=== PATIENT | female | born 1975 | race Caucasian/White ===

== ENCOUNTER → 2021-10-20 | Outpatient (CLI) | payer OTHER ==
[2021-10-20 13:42] LABS: BASO % 0.2 % (0.0-1.0); EOS # 0.2 10^3/uL (0.0-0.5); EOS % 2.7 % (0.0-3.0); HEMATOCRIT 36.5 % (36.0-47.0); HEMOGLOBIN 12.3 g/dl (12.0-15.5); LYMPH # 2.2 10^3/uL (1.5-5.0); LYMPH % 26.1 % (24.0-44.0); MEAN CORPUSCULAR HEMOGLOBIN 28.4 pg (27.0-33.0); MEAN CORPUSCULAR HGB CONC 33.7 g/dl (32.0-36.5); MEAN CORPUSCULAR VOLUME 84.3 fl (80.0-96.0); MONO # 0.6 10^3/uL (0.0-0.8); MONO % 6.8 % (2.0-8.0); NEUTROPHILS # 5.3 10^3/uL (1.5-8.5); PLATELET COUNT, AUTOMATED 221 10^3/uL (150-450); RED BLOOD COUNT 4.33 10^6/uL (4.00-5.40); WHITE BLOOD COUNT 8.2 10^3/uL (4.0-10.0)
[2021-10-20 13:53] LABS: APPEARANCE, URINE HAZY (CLEAR); BACTERIA, URINE AUTO NEGATIVE (NEGATIVE); BILIRUBIN, URINE AUTO NEGATIVE (NEGATIVE); BLOOD, URINE BLOOD NEGATIVE (NEGATIVE); COLOR, URINE YELLOW (YELLOW); GLUCOSE, URINE (UA) AUTO NEGATIVE (NEGATIVE); KETONE, URINE AUTO NEGATIVE (NEGATIVE); LEUKOCYTE ESTERASE, URINE AUTO 3+ (NEGATIVE); NITRITE, URINE AUTO NEGATIVE (NEGATIVE); PROTEIN, URINE AUTO NEGATIVE (NEGATIVE); RBC, URINE AUTO 0 /HPF (0-3); SPECIFIC GRAVITY URINE AUTO 1.011 (1.002-1.035); SQUAMOUS EPITHELIAL CELL UR AU 4 /HPF (0-6); UROBILINOGEN, URINE AUTO 0.2 mg/dL (0.0-2.0); WBC, URINE AUTO 2 /HPF (0-3)
[2021-10-20 14:20] LABS: ALBUMIN 3.6 GM/DL (3.2-5.2); ALT/SGPT 18 U/L (12-78); BILIRUBIN,TOTAL 0.4 MG/DL (0.2-1.0); BLOOD UREA NITROGEN 21 MG/DL (7-18); CARBON DIOXIDE LEVEL 33 MEQ/L (21-32); CHLORIDE LEVEL 99 MEQ/L (98-107); CREATININE FOR GFR 0.74 MG/DL (0.55-1.30); FREE T4 0.72 NG/DL (0.76-1.46); GLOMERULAR FILTRATION RATE > 60.0 (>58); GLUCOSE, FASTING 92 MG/DL (70-100); POTASSIUM SERUM 4.1 MEQ/L (3.5-5.1); SODIUM LEVEL 135 MEQ/L (136-145); TOTAL PROTEIN 7.1 GM/DL (6.4-8.2)
[2021-10-20 14:24] LABS: HEPATITIS B SURFACE ANTIGEN NEGATIVE (NEGATIVE)
[2021-10-20 14:52] LABS: HEPATITIS B CORE ANTIBODY IGM NEGATIVE (NEGATIVE)
[2021-10-20 15:02] LABS: HEPATITIS C VIRUS ABY INDEX > 11.0 INDEX (<0.8)
== END ==
LOC: M PLALAB 09:43
PROVIDERS: ATTEND Physician Assistant
DX: R53.83 Other fatigue (principal); Z02.2 Encounter for examination for admission to residential institution

== ENCOUNTER → 2021-10-20 | Outpatient (CLI) | payer OTHER ==
[2021-10-20 13:45] LABS: HEMATOCRIT 36.9 % (36.0-47.0); HEMOGLOBIN 12.3 g/dl (12.0-15.5); MEAN CORPUSCULAR HEMOGLOBIN 28.1 pg (27.0-33.0); MEAN CORPUSCULAR HGB CONC 33.3 g/dl (32.0-36.5); MEAN CORPUSCULAR VOLUME 84.4 fl (80.0-96.0); PLATELET COUNT, AUTOMATED 221 10^3/uL (150-450); RED BLOOD COUNT 4.37 10^6/uL (4.00-5.40); WHITE BLOOD COUNT 8.2 10^3/uL (4.0-10.0)
[2021-10-20 14:03] LABS: ALBUMIN 3.6 GM/DL (3.2-5.2); ALT/SGPT 19 U/L (12-78); BILIRUBIN,TOTAL 0.3 MG/DL (0.2-1.0); BLOOD UREA NITROGEN 21 MG/DL (7-18); CALCIUM LEVEL 9.5 MG/DL (8.5-10.1); CARBON DIOXIDE LEVEL 31 MEQ/L (21-32); CHLORIDE LEVEL 101 MEQ/L (98-107); CREATININE FOR GFR 0.76 MG/DL (0.55-1.30); GLOMERULAR FILTRATION RATE > 60.0 (>58); GLUCOSE, FASTING 95 MG/DL (70-100); POTASSIUM SERUM 4.2 MEQ/L (3.5-5.1); SODIUM LEVEL 137 MEQ/L (136-145); TOTAL PROTEIN 7.3 GM/DL (6.4-8.2)
[2021-10-20 14:04] LABS: HCG, SERUM QUALITATIVE NEGATIVE (NEGATIVE)
[2021-10-20 14:22] LABS: HEPATITIS B SURFACE ANTIGEN NEGATIVE (NEGATIVE)
[2021-10-20 14:50] LABS: HIV 1&2 SCREEN CENTAUR NEGATIVE (NEGATIVE)
[2021-10-20 15:13] LABS: HEPATITIS C VIRUS ABY INDEX > 11.0 INDEX (<0.8)
[2021-10-20 15:26] LABS: GC DNA AMPLIFICATION NEGATIVE (NEGATIVE)
== END ==
LOC: M PLALAB 09:55
PROVIDERS: ATTEND Family Medicine
DX: Z02.2 Encounter for examination for admission to residential institution (principal)

== ENCOUNTER → 2021-11-12 | Outpatient (CLI) | payer OTHER | LOC: M PLALAB 13:07 | PROVIDERS: ATTEND Family Medicine | DX: F11.20 Opioid dependence, uncomplicated (principal) | CPT/HCPCS: 36415; G0480 ==

== ENCOUNTER → 2021-11-13 | Outpatient (CLI) | payer OTHER ==
[~2021-11-13] MED LIST: CLONI1TA PO; EFFE75CA2 PO; METH10CO PO; VIST25CA PO
== END ==
LOC: M PLALAB 10:44
PROVIDERS: ATTEND Family Medicine
DX: F11.20 Opioid dependence, uncomplicated (principal)
CPT/HCPCS: 36415; G0480

== ENCOUNTER 2021-11-14 16:09 | Emergency (ER) | payer OTHER ==
[~2021-11-14] VITALS: Ht 162.6 cm; Wt 71.2 kg
[2021-11-14] MEDS ORDERED: VIST25CA PO (16:19)
[2021-11-14] MEDS ORDERED: CLONI1TA PO (16:19)
[2021-11-14] MEDS ORDERED: EFFE75CA2 PO (16:19)
[2021-11-14] MEDS ORDERED: METH10CO PO (16:19)
[2021-11-14 22:43] VITALS: BP 109/63
[2021-11-14] MEDS ORDERED: cloNIDine 0.1MG TABLET PO ONE (22:50)
== END 2021-11-14 23:06 | disposition home or self-care (01) ==
LOC: M ED 16:09
DX: F11.23 Opioid dependence with withdrawal (principal); R10.9 Unspecified abdominal pain; Z79.899 Other long term (current) drug therapy; Z88.0 Allergy status to penicillin; Z88.1 Allergy status to other antibiotic agents; Z88.2 Allergy status to sulfonamides

== ENCOUNTER → 2021-11-14 | Outpatient (CLI) | payer OTHER | LOC: M PLALAB 08:48 | PROVIDERS: ATTEND Family Medicine | DX: F11.20 Opioid dependence, uncomplicated (principal) | CPT/HCPCS: 36415; G0480 ==

== ENCOUNTER → 2022-06-25 | Outpatient (REF) | payer OTHER ==
[2022-06-25 16:17] LABS: GC DNA AMPLIFICATION NEGATIVE (NEGATIVE)
== END ==
LOC: M LAB REF 12:28
PROVIDERS: ATTEND Surgery
DX: A64 Unspecified sexually transmitted disease (principal)

== ENCOUNTER 2022-10-15 14:52 | Inpatient (IN) | payer MEDICAID, OTHER, SELFPAY ==
[~2022-10-15] VITALS: Ht 160 cm; Wt 85.5 kg
[2022-10-15 16:01] LABS: HEMATOCRIT 35.4 % (36.0-47.0); HEMOGLOBIN 11.8 g/dl (12.0-15.5); MEAN CORPUSCULAR HEMOGLOBIN 29.1 pg (27.0-33.0); MEAN CORPUSCULAR HGB CONC 33.3 g/dl (32.0-36.5); MEAN CORPUSCULAR VOLUME 87.4 fl (80.0-96.0); PLATELET COUNT, AUTOMATED 238 10^3/uL (150-450); RED BLOOD COUNT 4.05 10^6/uL (4.00-5.40); WHITE BLOOD COUNT 12.3 10^3/uL (4.0-10.0)
[2022-10-15 16:24] LABS: ETHYL ALCOHOL (ETHANOL) < 0.003 % (0.000-0.010); HCG, SERUM QUALITATIVE NEGATIVE (NEGATIVE)
[2022-10-15 16:25] LABS: ACETAMINOPHEN LEVEL < 2.0 UG/ML (10.0-20.0); SALICYLATE LEVEL < 3.0 MG/DL (<30)
[2022-10-15 16:33] LABS: ALBUMIN 3.9 G/DL (3.2-5.2); ALKALINE PHOSPHATASE 115 U/L (46-116); ALT/SGPT 67 U/L (7.0-40); AST/SGOT 127 U/L (<34); BILIRUBIN,DIRECT 0.2 MG/DL (<0.4); BILIRUBIN,TOTAL 0.7 MG/DL (0.3-1.2); BLOOD UREA NITROGEN 28 MG/DL (9-23); CARBON DIOXIDE LEVEL 29 MMOL/L (20-31); CHLORIDE LEVEL 103 MMOL/L (98-107); CREATININE FOR GFR 0.72 MG/DL (0.55-1.30); GLOMERULAR FILTRATION RATE > 60.0 (>58); GLUCOSE, FASTING 85 MG/DL (60-100); POTASSIUM SERUM 3.3 MMOL/L (3.5-5.1); SODIUM LEVEL 140 MMOL/L (136-145); TOTAL PROTEIN 7.8 G/DL (5.7-8.2)
[2022-10-15] MEDS ORDERED: POTASSIUM CHLORIDE 10MEQ SR TABLET PO ONE (16:40)
[2022-10-15 16:47] LABS: THYROID STIMULATING HORMONE 4.548 uIU/ML (0.55-4.78)
[2022-10-15 17:53] LABS: BARBITURATES URINE NEGATIVE (NEGATIVE); BENZODIAZEPINES URINE NEGATIVE (NEGATIVE); COCAINE METABOLITE URINE NEGATIVE (NEGATIVE); PHENCYCLIDINE URINE NEGATIVE (NEGATIVE)
[2022-10-15 17:54] LABS: CANNABINOIDS URINE NEGATIVE (NEGATIVE)
[2022-10-15 17:59] LABS: AMPHETAMINES LEVEL URINE POSITIVE (NEGATIVE); METHADONE URINE POSITIVE (NEGATIVE); OPIATES URINE POSITIVE (NEGATIVE)
[2022-10-15] MEDS ORDERED: MOM 30ML SUSPENSION UDC PO PRN (20:45)
[2022-10-15] MEDS ORDERED: MAALOX 30 ML SUSP *UDC PO PRN (20:45)
[2022-10-15] MEDS ORDERED: ACETAMINOPHEN TAB 650MG DOSE (2X325MG) PO PRN (20:45)
[2022-10-15] MEDS ORDERED: IBUPROFEN 400MG TAB PO PRN (20:45)
[2022-10-15] MEDS: traZODone 50 MG TAB PO PRN (22:51)
[2022-10-16 07:05] VITALS: BP 131/75
[2022-10-16] MEDS: NICOTINE 21MG/24HR 1 EA TRANSDERMAL TD SCH (09:00)
[2022-10-16] MEDS ORDERED: cloNIDine 0.1MG TABLET PO SCH (09:00)
[2022-10-16] MEDS ORDERED: VENLAFAXINE **XR** 75MG CAPSULE PO SCH (09:00)
[2022-10-16] MEDS ORDERED: SENN-188 PO (10:50)
[2022-10-16] MEDS ORDERED: VENL150C43 PO (10:50)
[2022-10-16] MEDS ORDERED: PRAZ1CAP PO (10:50)
[2022-10-16] MEDS ORDERED: THERTAB21 PO (10:50)
[2022-10-16] MEDS ORDERED: COLA100C5 PO (10:50)
[2022-10-16] MEDS ORDERED: CLON0.3T PO (10:50)
[2022-10-16] MEDS ORDERED: MIRT1TAB16 PO (10:50)
[2022-10-16] MEDS ORDERED: PATIENT COMMENT (10:57)
[2022-10-16] MEDS ORDERED: VENL37.52 PO (10:57)
[2022-10-16] MEDS ORDERED: HOME MED LIST COMPLETE! XX SCH (11:00)
[2022-10-16] MEDS ORDERED: METHADONE 10MG TAB PO ONE (11:00)
[2022-10-16] MEDS ORDERED: SENNA 8.6 MG TAB (SENOKOT) PO PRN (13:10)
[2022-10-16 13:40] VITALS: BP 130/78
[2022-10-16] MEDS: cloNIDine 0.1MG TABLET PO SCH ×2 (13:42→21:49)
[2022-10-16] MEDS: VENLAFAXINE **XR** 37.5 MG CAPSULE PO SCH (13:43)
[2022-10-16] MEDS: MULTIVITAMINS/MINERALS THERAP 1 TAB PO SCH (13:44)
[2022-10-16 18:46] VITALS: BP 116/60
[2022-10-16] MEDS: DOCUSATE SODIUM 100MG CAPSULE PO SCH (21:49)
[2022-10-16] MEDS: MIRTAZAPINE 15 MG TAB PO SCH (21:49)
[2022-10-16] MEDS: PRAZOSIN 1 MG CAP PO SCH (21:49)
[2022-10-16] MEDS: MUPIROCIN 2% OINT 22 GM TUBE TOP SCH (21:51)
[2022-10-17 06:28] VITALS: BP 119/53
[2022-10-17 07:53] LABS: HEMOGLOBIN A1c 5.5 % (4.0-6.0)
[2022-10-17 08:03] LABS: CHOLESTEROL RISK RATIO 5.65 (<5); HDL CHOLESTEROL 32.2 MG/DL (>40); NON-HDL-C 149.8 MG/DL
[2022-10-17 08:19] LABS: HEPATITIS B SURFACE ANTIGEN NEGATIVE (NEGATIVE)
[2022-10-17] MEDS: NICOTINE 21MG/24HR 1 EA TRANSDERMAL TD SCH (08:29)
[2022-10-17] MEDS: METHADONE 10MG TAB PO SCH (08:36)
[2022-10-17] MEDS: MULTIVITAMINS/MINERALS THERAP 1 TAB PO SCH (08:37)
[2022-10-17] MEDS: DOCUSATE SODIUM 100MG CAPSULE PO SCH ×2 (08:37→21:38)
[2022-10-17] MEDS: VENLAFAXINE **XR** 37.5 MG CAPSULE PO SCH (08:37)
[2022-10-17] MEDS: MUPIROCIN 2% OINT 22 GM TUBE TOP SCH ×3 (08:38→21:38)
[2022-10-17 08:41] LABS: HEPATITIS B CORE ANTIBODY IGM NEGATIVE (NEGATIVE)
[2022-10-17 08:48] LABS: ALKALINE PHOSPHATASE 98 U/L (46-116); ALT/SGPT 51 U/L (7.0-40); AST/SGOT 50 U/L (<34); BILIRUBIN,DIRECT < 0.1 MG/DL (<0.4); BILIRUBIN,TOTAL 0.3 MG/DL (0.3-1.2); TOTAL PROTEIN 6.4 G/DL (5.7-8.2)
[2022-10-17 08:53] LABS: HEPATITIS C VIRUS ABY INDEX > 11.0 INDEX (<0.8)
[2022-10-17] MEDS: cloNIDine 0.1MG TABLET PO SCH ×2 (09:28→21:38)
[2022-10-17 16:24] VITALS: BP 100/58
[2022-10-17] MEDS: MIRTAZAPINE 15 MG TAB PO SCH (21:38)
[2022-10-17] MEDS: PRAZOSIN 1 MG CAP PO SCH (21:39)
[2022-10-18 06:54] VITALS: BP 109/53
[2022-10-18] MEDS: NICOTINE 21MG/24HR 1 EA TRANSDERMAL TD SCH (08:57)
[2022-10-18] MEDS: VENLAFAXINE **XR** 37.5 MG CAPSULE PO SCH (09:00)
[2022-10-18] MEDS: METHADONE 10MG TAB PO SCH (09:00)
[2022-10-18] MEDS: DOCUSATE SODIUM 100MG CAPSULE PO SCH ×2 (09:01→21:49)
[2022-10-18] MEDS: MULTIVITAMINS/MINERALS THERAP 1 TAB PO SCH (09:01)
[2022-10-18] MEDS: cloNIDine 0.1MG TABLET PO SCH ×2 (09:01→21:50)
[2022-10-18] MEDS: MUPIROCIN 2% OINT 22 GM TUBE TOP SCH ×3 (09:01→21:49)
[2022-10-18 16:46] VITALS: BP 124/79
[2022-10-18] MEDS: MIRTAZAPINE 15 MG TAB PO SCH (21:49)
[2022-10-18] MEDS: PRAZOSIN 1 MG CAP PO SCH (21:50)
[2022-10-18] MEDS: traZODone 50 MG TAB PO PRN (21:50)
[2022-10-19 06:38] VITALS: BP 111/58
[2022-10-19] MEDS: NICOTINE 21MG/24HR 1 EA TRANSDERMAL TD SCH (09:00)
[2022-10-19 09:31] VITALS: BP 125/72
[2022-10-19] MEDS: VENLAFAXINE **XR** 37.5 MG CAPSULE PO SCH (09:31)
[2022-10-19] MEDS: MULTIVITAMINS/MINERALS THERAP 1 TAB PO SCH (09:31)
[2022-10-19] MEDS: DOCUSATE SODIUM 100MG CAPSULE PO SCH ×2 (09:31→22:03)
[2022-10-19] MEDS: METHADONE 10MG TAB PO SCH (09:32)
[2022-10-19] MEDS: cloNIDine 0.1MG TABLET PO SCH ×2 (09:32→22:04)
[2022-10-19] MEDS: MUPIROCIN 2% OINT 22 GM TUBE TOP SCH ×3 (09:37→22:05)
[2022-10-19] MEDS: OMEGA-3 1000MG CAPSULE PO SCH ×2 (11:36→21:00)
[2022-10-19 16:08] LABS: ANTINUCLEAR ANTIBODIES DIRECT Negative (Negative)
[2022-10-19 18:00] VITALS: BP 122/67
[2022-10-19] MEDS: traZODone 50 MG TAB PO PRN (22:03)
[2022-10-19] MEDS: ARIPiprazole 2 MG TAB PO SCH (22:03)
[2022-10-19] MEDS: MIRTAZAPINE 15 MG TAB PO SCH (22:04)
[2022-10-19] MEDS: PRAZOSIN 1 MG CAP PO SCH (22:04)
[2022-10-20 06:30] VITALS: BP 121/63
[2022-10-20] MEDS: MUPIROCIN 2% OINT 22 GM TUBE TOP SCH ×3 (08:50→21:00)
[2022-10-20] MEDS: METHADONE 10MG TAB PO SCH (08:50)
[2022-10-20] MEDS: VENLAFAXINE **XR** 37.5 MG CAPSULE PO SCH (08:51)
[2022-10-20] MEDS: cloNIDine 0.1MG TABLET PO SCH ×2 (08:52→21:59)
[2022-10-20] MEDS: MULTIVITAMINS/MINERALS THERAP 1 TAB PO SCH (08:52)
[2022-10-20] MEDS: DOCUSATE SODIUM 100MG CAPSULE PO SCH ×2 (08:52→21:53)
[2022-10-20] MEDS: NICOTINE 21MG/24HR 1 EA TRANSDERMAL TD SCH (08:53)
[2022-10-20] MEDS: OMEGA-3 1000MG CAPSULE PO SCH ×2 (08:53→21:00)
[2022-10-20 16:08] VITALS: BP 118/75
[2022-10-20] MEDS: ARIPiprazole 2 MG TAB PO SCH (21:53)
[2022-10-20] MEDS: MIRTAZAPINE 15 MG TAB PO SCH (21:54)
[2022-10-20] MEDS: PRAZOSIN 1 MG CAP PO SCH (21:57)
[2022-10-21 06:12] VITALS: BP 113/62
[2022-10-21] MEDS: NICOTINE 21MG/24HR 1 EA TRANSDERMAL TD SCH (09:00)
[2022-10-21] MEDS: MUPIROCIN 2% OINT 22 GM TUBE TOP SCH ×2 (09:00→15:47)
[2022-10-21] MEDS: OMEGA-3 1000MG CAPSULE PO SCH ×2 (09:00→21:00)
[2022-10-21] MEDS: DOCUSATE SODIUM 100MG CAPSULE PO SCH ×2 (09:00→21:00)
[2022-10-21 09:09] VITALS: BP 124/69
[2022-10-21] MEDS: cloNIDine 0.1MG TABLET PO SCH ×2 (09:10→21:04)
[2022-10-21] MEDS: MULTIVITAMINS/MINERALS THERAP 1 TAB PO SCH (09:11)
[2022-10-21] MEDS: VENLAFAXINE **XR** 37.5 MG CAPSULE PO SCH (09:11)
[2022-10-21] MEDS: METHADONE 10MG TAB PO SCH (09:15)
[2022-10-21] MEDS: PRAZOSIN 1 MG CAP PO SCH (21:03)
[2022-10-21] MEDS: MIRTAZAPINE 15 MG TAB PO SCH (21:03)
[2022-10-21] MEDS: ARIPiprazole 2 MG TAB PO SCH (21:03)
[2022-10-22 06:32] VITALS: BP 110/55
[2022-10-22] MEDS: OMEGA-3 1000MG CAPSULE PO SCH ×2 (09:00→21:00)
[2022-10-22] MEDS: MULTIVITAMINS/MINERALS THERAP 1 TAB PO SCH (09:00)
[2022-10-22] MEDS: NICOTINE 21MG/24HR 1 EA TRANSDERMAL TD SCH (09:00)
[2022-10-22] MEDS: cloNIDine 0.1MG TABLET PO SCH ×2 (09:34→22:10)
[2022-10-22] MEDS: DOCUSATE SODIUM 100MG CAPSULE PO SCH ×2 (09:35→22:09)
[2022-10-22] MEDS: METHADONE 10MG TAB PO SCH (09:35)
[2022-10-22] MEDS: VENLAFAXINE **XR** 75MG CAPSULE PO SCH (09:35)
[2022-10-22 12:11] VITALS: BP 110/63
[2022-10-22] MEDS: hydrOXYzine 50 MG TAB PO PRN ×2 (12:27→19:31)
[2022-10-22 17:21] VITALS: BP 107/59
[2022-10-22] MEDS: ALBUTEROL 90 MCG/ACT 8GM HFA INHALER INH PRN (19:31)
[2022-10-22] MEDS: ARIPiprazole 2 MG TAB PO SCH (22:07)
[2022-10-22] MEDS: PRAZOSIN 1 MG CAP PO SCH (22:09)
[2022-10-22] MEDS: traZODone 50 MG TAB PO PRN (22:09)
[2022-10-22] MEDS: MIRTAZAPINE 15 MG TAB PO SCH (22:09)
[2022-10-23 06:34] VITALS: BP 104/59
[2022-10-23] MEDS: ALBUTEROL 90 MCG/ACT 8GM HFA INHALER INH PRN ×4 (06:49→19:18)
[2022-10-23 08:46] VITALS: BP 125/65
[2022-10-23] MEDS: cloNIDine 0.1MG TABLET PO SCH ×2 (08:49→20:11)
[2022-10-23] MEDS: DOCUSATE SODIUM 100MG CAPSULE PO SCH ×2 (08:49→20:11)
[2022-10-23] MEDS: VENLAFAXINE **XR** 75MG CAPSULE PO SCH (08:50)
[2022-10-23] MEDS: MULTIVITAMINS/MINERALS THERAP 1 TAB PO SCH (08:50)
[2022-10-23] MEDS: METHADONE 10MG TAB PO SCH (08:52)
[2022-10-23] MEDS: hydrOXYzine 50 MG TAB PO PRN ×2 (08:53→14:58)
[2022-10-23] MEDS: NICOTINE 21MG/24HR 1 EA TRANSDERMAL TD SCH (08:57)
[2022-10-23] MEDS: OMEGA-3 1000MG CAPSULE PO SCH ×2 (08:57→20:12)
[2022-10-23 17:37] VITALS: BP 144/75
[2022-10-23] MEDS: ARIPiprazole 2 MG TAB PO SCH (20:11)
[2022-10-23] MEDS: PRAZOSIN 1 MG CAP PO SCH (20:12)
[2022-10-23] MEDS: MIRTAZAPINE 15 MG TAB PO SCH (20:12)
[2022-10-24] MEDS: ALBUTEROL 90 MCG/ACT 8GM HFA INHALER INH PRN ×4 (03:28→17:58)
[2022-10-24] MEDS: hydrOXYzine 50 MG TAB PO PRN ×3 (03:28→17:57)
[2022-10-24 06:18] VITALS: BP 108/62
[2022-10-24 08:40] VITALS: BP 123/75
[2022-10-24] MEDS: NICOTINE 21MG/24HR 1 EA TRANSDERMAL TD SCH (08:41)
[2022-10-24] MEDS: OMEGA-3 1000MG CAPSULE PO SCH ×2 (08:41→20:02)
[2022-10-24] MEDS: MULTIVITAMINS/MINERALS THERAP 1 TAB PO SCH (08:46)
[2022-10-24] MEDS: DOCUSATE SODIUM 100MG CAPSULE PO SCH ×2 (08:46→20:02)
[2022-10-24] MEDS: cloNIDine 0.1MG TABLET PO SCH ×2 (08:46→20:04)
[2022-10-24] MEDS: VENLAFAXINE **XR** 75MG CAPSULE PO SCH (08:46)
[2022-10-24] MEDS: METHADONE 10MG TAB PO SCH (08:48)
[2022-10-24 18:00] VITALS: BP 130/76
[2022-10-24] MEDS: ARIPiprazole 2 MG TAB PO SCH (20:02)
[2022-10-24] MEDS: MIRTAZAPINE 15 MG TAB PO SCH (20:02)
[2022-10-24] MEDS: PRAZOSIN 1 MG CAP PO SCH (20:04)
[2022-10-24] MEDS: traZODone 50 MG TAB PO PRN (20:05)
[2022-10-25] MEDS: ALBUTEROL 90 MCG/ACT 8GM HFA INHALER INH PRN ×4 (00:43→19:54)
[2022-10-25 06:06] VITALS: BP 116/56
[2022-10-25 08:06] VITALS: BP 126/75
[2022-10-25] MEDS: MULTIVITAMINS/MINERALS THERAP 1 TAB PO SCH (08:06)
[2022-10-25] MEDS: cloNIDine 0.1MG TABLET PO SCH ×2 (08:07→19:55)
[2022-10-25] MEDS: DOCUSATE SODIUM 100MG CAPSULE PO SCH ×2 (08:07→19:56)
[2022-10-25] MEDS: METHADONE 10MG TAB PO SCH (08:07)
[2022-10-25] MEDS: VENLAFAXINE **XR** 75MG CAPSULE PO SCH (08:07)
[2022-10-25] MEDS: NICOTINE 21MG/24HR 1 EA TRANSDERMAL TD SCH (08:10)
[2022-10-25] MEDS: OMEGA-3 1000MG CAPSULE PO SCH ×2 (08:10→19:58)
[2022-10-25] MEDS ORDERED: cloNIDine 0.1MG TABLET PO SCH (09:00)
[2022-10-25] MEDS: hydrOXYzine 50 MG TAB PO PRN ×2 (09:52→18:05)
[2022-10-25] MEDS: haloperidoL 0.5 MG TAB PO SCH ×2 (13:27→19:56)
[2022-10-25 18:00] VITALS: BP 148/82
[2022-10-25] MEDS: PRAZOSIN 1 MG CAP PO SCH (19:55)
[2022-10-25] MEDS: ARIPiprazole 2 MG TAB PO SCH (19:55)
[2022-10-25] MEDS: MIRTAZAPINE 15 MG TAB PO SCH (19:56)
[2022-10-25] MEDS: traZODone 50 MG TAB PO PRN (19:57)
[2022-10-26] MEDS: hydrOXYzine 50 MG TAB PO PRN ×2 (01:41→08:41)
[2022-10-26] MEDS: ALBUTEROL 90 MCG/ACT 8GM HFA INHALER INH PRN ×4 (01:41→19:44)
[2022-10-26] MEDS ORDERED: SODIUM CHLORIDE NASAL 0.65% SPRAY BTL (OCEAN) PRN (06:30)
[2022-10-26 06:52] VITALS: BP 112/67
[2022-10-26 08:34] VITALS: BP 118/78
[2022-10-26] MEDS: NICOTINE 21MG/24HR 1 EA TRANSDERMAL TD SCH (08:35)
[2022-10-26] MEDS: METHADONE 10MG TAB PO SCH (08:40)
[2022-10-26] MEDS: cloNIDine 0.1MG TABLET PO SCH ×2 (08:41→20:38)
[2022-10-26] MEDS: VENLAFAXINE **XR** 75MG CAPSULE PO SCH (08:41)
[2022-10-26] MEDS: OMEGA-3 1000MG CAPSULE PO SCH ×2 (08:42→20:33)
[2022-10-26] MEDS: MULTIVITAMINS/MINERALS THERAP 1 TAB PO SCH (08:42)
[2022-10-26] MEDS: haloperidoL 0.5 MG TAB PO SCH ×2 (08:42→20:39)
[2022-10-26] MEDS: DOCUSATE SODIUM 100MG CAPSULE PO SCH ×2 (08:42→20:33)
[2022-10-26 16:21] VITALS: BP 124/66
[2022-10-26] MEDS: hydrOXYzine 50 MG TAB PO SCH ×2 (17:15→20:39)
[2022-10-26] MEDS: MIRTAZAPINE 15 MG TAB PO SCH (20:38)
[2022-10-26] MEDS: PRAZOSIN 1 MG CAP PO SCH (20:39)
[2022-10-26] MEDS: ARIPiprazole 2 MG TAB PO SCH (20:39)
[2022-10-26] MEDS: traZODone 50 MG TAB PO PRN (20:39)
[2022-10-27] MEDS: ALBUTEROL 90 MCG/ACT 8GM HFA INHALER INH PRN ×5 (02:13→20:00)
[2022-10-27 06:54] VITALS: BP 132/83
[2022-10-27] MEDS: OMEGA-3 1000MG CAPSULE PO SCH ×2 (09:00→20:09)
[2022-10-27] MEDS: haloperidoL 0.5 MG TAB PO SCH ×2 (09:16→20:05)
[2022-10-27] MEDS: MULTIVITAMINS/MINERALS THERAP 1 TAB PO SCH (09:17)
[2022-10-27] MEDS: VENLAFAXINE **XR** 75MG CAPSULE PO SCH (09:17)
[2022-10-27] MEDS: hydrOXYzine 50 MG TAB PO SCH ×4 (09:17→20:05)
[2022-10-27] MEDS: METHADONE 10MG TAB PO SCH (09:17)
[2022-10-27] MEDS: DOCUSATE SODIUM 100MG CAPSULE PO SCH ×2 (09:17→20:09)
[2022-10-27] MEDS: cloNIDine 0.1MG TABLET PO SCH ×2 (09:20→20:04)
[2022-10-27] MEDS: NICOTINE 21MG/24HR 1 EA TRANSDERMAL TD SCH (09:20)
[2022-10-27] MEDS: GABAPENTIN 100 MG CAP PO SCH ×2 (16:34→20:06)
[2022-10-27 16:39] VITALS: BP 114/56
[2022-10-27] MEDS: ARIPiprazole 2 MG TAB PO SCH (20:05)
[2022-10-27] MEDS: PRAZOSIN 1 MG CAP PO SCH (20:05)
[2022-10-27] MEDS: MIRTAZAPINE 15 MG TAB PO SCH (20:05)
[2022-10-27] MEDS: traZODone 50 MG TAB PO PRN (20:06)
[2022-10-28] MEDS: ALBUTEROL 90 MCG/ACT 8GM HFA INHALER INH PRN ×3 (01:54→12:54)
[2022-10-28 06:16] VITALS: BP 129/64
[2022-10-28] MEDS: haloperidoL 0.5 MG TAB PO SCH (08:08)
[2022-10-28 08:10] VITALS: BP 114/70
[2022-10-28] MEDS: cloNIDine 0.1MG TABLET PO SCH (08:10)
[2022-10-28] MEDS: VENLAFAXINE **XR** 75MG CAPSULE PO SCH (08:12)
[2022-10-28] MEDS: GABAPENTIN 100 MG CAP PO SCH ×2 (08:12→15:55)
[2022-10-28] MEDS: OMEGA-3 1000MG CAPSULE PO SCH (08:12)
[2022-10-28] MEDS: DOCUSATE SODIUM 100MG CAPSULE PO SCH (08:13)
[2022-10-28] MEDS: MULTIVITAMINS/MINERALS THERAP 1 TAB PO SCH (08:13)
[2022-10-28] MEDS: hydrOXYzine 50 MG TAB PO SCH ×2 (08:13→12:54)
[2022-10-28] MEDS: METHADONE 10MG TAB PO SCH (08:14)
[2022-10-28] MEDS: NICOTINE 21MG/24HR 1 EA TRANSDERMAL TD SCH (08:17)
[2022-10-28] MEDS ORDERED: VENTAER INH (09:45)
[2022-10-28] MEDS ORDERED: GABA-1171 PO (09:45)
[2022-10-28] MEDS ORDERED: HYDR50TA70 PO (09:45)
[2022-10-28] MEDS ORDERED: VENL75CA47 PO (09:45)
[2022-10-28] MEDS ORDERED: HALO0.5H PO (09:45)
[2022-10-28] MEDS ORDERED: CLONI1TA PO (09:45)
== END 2022-10-28 16:39 | disposition home or self-care (01) | DRG 754 ==
LOC: M ED 14:52 → M ED INP 20:41 → M PSY 22:37
PROVIDERS: ADMIT Student in an Organized Health Care Education/Training Program; ATTEND Psychiatry & Neurology Child & Adolescent Psychiatry
DX: F32.A Depression, unspecified (principal); F11.20 Opioid dependence, uncomplicated; R45.851 Suicidal ideations; Z91.198 Patient's noncompliance with other medical treatment and regimen for other reason; R45.850 Homicidal ideations; F60.89 Other specific personality disorders; F41.9 Anxiety disorder, unspecified; F12.10 Cannabis abuse, uncomplicated; F17.200 Nicotine dependence, unspecified, uncomplicated; Z65.2 Problems related to release from prison; Z79.899 Other long term (current) drug therapy; Z88.0 Allergy status to penicillin; Z88.2 Allergy status to sulfonamides; E87.6 Hypokalemia; R74.01 Elevation of levels of liver transaminase levels; E66.9 Obesity, unspecified; Z68.31 Body mass index [BMI] 31.0-31.9, adult; S90.822A Blister (nonthermal), left foot, initial encounter; X58.XXXA Exposure to other specified factors, initial encounter; Y92.9 Unspecified place or not applicable; Y93.9 Activity, unspecified; Y99.9 Unspecified external cause status